=== PATIENT | male | born 1985 | race Caucasian/White ===

== ENCOUNTER 2016-10-29 21:01 | Emergency (ER) | payer OTHER, BC ==
[~2016-10-29] VITALS: Ht 182.9 cm; Wt 96.0 kg
[2016-10-30] MEDS ORDERED: PERCOCET 5/31 TABLET PO (00:38)
[2016-10-30] MEDS ORDERED: FLEXERIL10 MG PO (00:38)
[2016-10-30 01:17] VITALS: BP 132/77
== END 2016-10-30 01:18 | disposition home or self-care (01) ==
LOC: EXP 21:01 → EME 21:01 → EXP 10-30 01:18
DX: S29.012A Strain of muscle and tendon of back wall of thorax, initial encounter (principal); S39.012A Strain of muscle, fascia and tendon of lower back, initial encounter; X50.0XXA Overexertion from strenuous movement or load, initial encounter; Y93.89 Activity, other specified; Y99.0 Civilian activity done for income or pay
CPT/HCPCS: 72100; 99281; 99283; J1885